=== PATIENT | male | born 1935 | race Caucasian/White ===

== ENCOUNTER 2020-01-21 09:49 | Day surgery (SDC) | payer OTHER ==
[2020-01-19 11:49] VITALS: BMI 23.0
--- OUTSIDE RECORDS SUMMARY | 2020-01-21 10:03 | XMS ---
:1935 Author Organization [facility] Care Team Providers Name Role Phone Lufrano, [place] Unavailable Unavailable Lufrano, [place] Unavailable Unavailable Lufrano, [place] Unavailable Unavailable Lufrano, [place] Unavailable Unavailable Lufrano, [place] Unavailable Unavailable Lufrano, [place] Unavailable Unavailable Lufrano, [place] Unavailable Unavailable Re-disclosure Warning The records that you are about to access may contain information from federally- assisted alcohol or drug abuse programs. If such information is present, then the following federally mandated warning applies: This information has been disclosed to you from records protected by federal confidentiality rules (42 CFR part 2). The federal rules prohibit you from making any further disclosure of this information unless further disclosure is expressly permitted by the written consent of the person to whom it pertains or as otherwise permitted by 42 CFR part 2. A general authorization for the release of medical or other information is NOT sufficient for this purpose. The Federal rules restrict any use of the information to criminally investigate or prosecute any alcohol or drug abuse patient.The records that you are about to access may contain highly sensitive health information, the redisclosure of which is protected by Article 27-F of the [facility] Public Health law. If you continue you may haveaccess to information: Regarding HIV / AIDS; Provided by facilities licensed or operated by the [facility] Office of Mental Health; or Provided by the [facility] Office for People With Developmental Disabilities. If such information is present, then the following [facility] mandated warning applies: This information has been disclosed to you from confidential records which are protected by state law. State law prohibits you from making any further disclosure of this information without the specific written consent of the person to whom it pertains, or as otherwise permitted by law. Any unauthorized further disclosure in violation of state law may result in a fine or longterm sentence or both. A general authorization for the release of medical or other information is NOT sufficient authorization for further disclosure. Encounters Encounter Providers Location Date Indications Data Source(s ) Attender: [place] 12/08/2019 [facility] ([facility] 12:00:00 AM EDT Medical, ) Office Attender: [place] Hernandes 12/08/2019 12:00:00 AM EDT [facility] ([facility], ) Office Attender: [place] Hernandes 12/08/2019 12:00:00 AM EDT [facility] ([facility], ) Office Medications Medication Brand Start Product Dose Route [facility] Indications Reaction Description Data Name Date Form Instructions Instructions Source(s) pantoprazol PROTON 90 complet PRO TONIX [facility] (St e 40 MG IX:284 2019 RELEASE ed Moe[facility] Delayed 400 12:00: TABLET Medical, Release 00 AM ) Oral Tablet EDT [Protonix] PROTONIX:28 4400 Insurance Providers Payer name Policy type Policy ID Covered Covered green party's Policy P jhonny / Coverage green party ID relationship to [place] Inf ormation type hendrickson AETNA [id number] MEDICARE [id number] Problems, Conditions, and Diagnoses Code Display Name Description Problem Type Effective Dates Data Source(s) D64.9 Anemia, ANEMIA, Problem 12/08/2019 [facility] (St unspecified UNSPECIFIED 12:00:00 AM EDAlber Al Kaleb ) K30 Functional FUNCTIONAL Problem 12/08/2019 [facility] (St dyspepsia DYSPEPSIA 12:00:00 AM EDAlber Verdugo Id lourdes ) R10.13 Epigastric pain EPIGASTRIC PAIN Problem 12/08/2019 [facility] EN (St 12:00:00 AM SAMANTHA Verdugo Id [facility] ) Surgeries/Procedures Procedure Description Date Indications Data Source(s) Documentation of current 12/08/2019 [facility] ([facility] medications (procedure) 12:00:00 AM EDAlber jacome ) OFFICE CONSULTATION 12/08/2019 [facility] ( [facility] NEW/ESTAB PATIENT 40 MIN 12:00:00 AM ED [facility]) Results ID Date Data Source [id number] 01/17/2020 12:40:00 PM EDT [facility] Name Value Range Interpretation Description Data Sup porting Code Source(s) Document(s ) SARS [facility] coronavirus 2 RNA This lab was ordered by DAVE ENG and reported by [facility]. ID Date Data Source [id number] 08/29/2019 09:35:00 AM EDT [facility] Name Value Range Interpretation Code Description Data Alix rce(s) Supporting Document(s ) COV2 [facility] This lab was ordered by BAILEY pathak nd reported by [facility]. Procedure Social History Code Duration Value Status Description Data Source(s ) Smoking 12/08/2019 Non Smoker Non completed Non Smoker Non [facility] ([facility] 12:00:00 AM EDT Drinker No Drug Drinker No Drug use [facility]) use Smoking 12/08/2019 Unknown if ever completed Unknown if ever [facility] ([facility] 12:00:00 AM EDT smoked smoked [facility]) Vital Signs ID Date Data Source UNK Name Value Range Interpretation Code Description Data Source(s) Heart rate 56 /min 56 /min [facility] ([facility]) Inhaled oxygen 96 % 96 % [facility] ([facility]) Body mass index 22.9 kg/m2 22.9 kg/m2 [facility] (S t (BMI) [Ratio] [facility]) Diastolic blood 62 mm[Hg] 62 mm[Hg] [facility] (S t pressure [facility]) Systolic blood 146 mm[Hg] 146 mm[Hg] [facility] ([facility]) Body weight 125 lb 125 lb [facility] ([facility]) Body height 62 in 62 in [facility] ([facility])
[2020-01-21 10:22] VITALS: TEMP 98.5
[2020-01-21] MEDS ORDERED: PROPOFOL 20 ML ONE ×2 (10:59)
[2020-01-21] MEDS ORDERED: LIDOCAINE HCL/PF 2% SDV 5ML VIAL ONE (10:59)
[2020-01-21 15:43] VITALS: BP 117/40; PULSE 53
--- NOTE | 2020-01-26 10:20 | PATH ---
Surgical Pathology Report Patient Name: BEATRIZ DURAN [facility]. Rec. #: [id number] /Age/Gender: 1935 (Age: 84) / M Account: [id number] Location: [facility] Taken: 01/21/2020 Received: 01/21/2020 Reported: 01/26/2020 Physicians: [place] Hernandes M.D. Specimen(s) Received A: SECOND PORTION DUODENUM B: ANTRUM C: GE JUNCTION Clinical History Dyspepsia Postoperative diagnosis: Gastritis, erosion Final Diagnosis A. 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 B. GASTRIC ANTRUM, BIOPSY: Gastric ANTRAL mucosa with moderate chronic gastritis. Immunohistochemical STAIN FOR H. Pylori is negative. C. GE JUNCTION, BIOPSY: SQUAMOUS MUCOSA WITH CHANGES OF MILD REFLUX TYPE ESOPHAGITIS. Positive and negative controls (internal if applicable) show appropriate results. Electronically Signed [place] Cheung M.D. Gross Description A. Received in formalin, labeled "second portion duodenum" is a allen, irregular portion of soft tissue measuring 0.3 cm. in greatest dimension. The specimen is submitted in toto in one cassette. B. Received in formalin, labeled "gastric antrum" is a allen, irregular portion of soft tissue measuring 0.4 cm. in greatest dimension. The specimen is submitted in toto in one cassette. C. Received in formalin, labeled "GE junction" is a allen, irregular portion of soft tissue measuring 0.3 cm. in greatest dimension. The specimen is submitted in toto in one cassette. MLSZ/01/22/2020 sanml/01/22/2020
== END 2020-01-21 12:30 | disposition home or self-care (01) ==
LOC: FASU-ENDO 09:49
PROVIDERS: ATTEND Internal Medicine Gastroenterology
PROC: 0DB68ZX Excision of Stomach, Via Natural or Artificial Opening Endoscopic, Diagnostic (ICD-10-PCS; 2020-01-21)
PROC: 0DB48ZX Excision of Esophagogastric Junction, Via Natural or Artificial Opening Endoscopic, Diagnostic (ICD-10-PCS; 2020-01-21)
PROC: 0DB98ZX Excision of Duodenum, Via Natural or Artificial Opening Endoscopic, Diagnostic (ICD-10-PCS; principal; 2020-01-21 11:19)
DX: D50.9 Iron deficiency anemia, unspecified (principal); K29.80 Duodenitis without bleeding; K29.50 Unspecified chronic gastritis without bleeding; K21.0 Gastro-esophageal reflux disease with esophagitis
CPT/HCPCS: 88305-TC; 88342-TC

== ENCOUNTER 2020-04-11 13:09 | Inpatient (IN) | payer OTHER ==
[2020-04-11 15:20] LABS: ACTIVATED PTT 26.3 SECONDS (25.2-36.5)
[2020-04-11 15:24] LABS: INR 1.13 (0.82-1.09); PROTHROMBIN TIME (PATIENT) 12.5 SEC (10.2-13.0)
[2020-04-11 15:27] LABS: ALBUMIN 3.8 g/dl (3.4-5.0); BILIRUBIN,TOTAL 0.7 mg/dl (0.2-1); CALCIUM 8.9 mg/dl (8.5-10); CREATININE 2.8 mg/dl (0.55-1.3); TOT PROT 7.4 g/dl (6.4-8.2)
[2020-04-11 15:27] LABS: EPITHELIAL CELLS RARE /hpf
[2020-04-11 15:33] LABS: POTASSIUM 2.6 mmol/L (3.5-5.1)
[2020-04-11] MEDS ORDERED: POTASSIUM CHLORIDE ORAL LIQUID 20 MEQ/15 ML PO ONE (15:33)
[2020-04-11] MEDS ORDERED: LACTATED RINGERS SOLUTION 1000 ML INFUS.BAG IV ONE (15:38)
[2020-04-11 15:52] LABS: BASO % 0.3 % (0-2.0); EOS % 0.5 % (0-4.5); HEMATOCRIT 31.3 % (35.4-49); HEMOGLOBIN 10.6 GM/dL (11.7-16.9); LYMPH % 28.7 % (8-40); MCH 32.7 pg (25.7-33.7); MCHC 33.8 g/dl (32.0-35.9); MEAN CELL VOLUME 96.6 fl (80-96); MEAN PLT VOLUME 9.4 fl (7.5-11.1); MONO % 10.1 % (3.8-10.2); NEUT % 60.4 % (42.8-82.8); PLATELET COUNT 172 K/MM3 (134-434); RBC 3.24 M/mm3 (4.00-5.60); RDW 13.9 % (11.9-15.9); WHITE BLOOD COUNT 6.2 K/mm3 (4.0-10.0)
[2020-04-11] MEDS ORDERED: KCL 10 MEQ IVPB 10 MEQ/100 ML INFUS.BAG IVPB ONE (16:05)
[2020-04-11] MEDS ORDERED: POTASSIUM CHLORIDE ORAL LIQUID 20 MEQ/15 ML ONE (16:06)
[2020-04-11] MEDS: KCL 10 MEQ IVPB 10 MEQ/100 ML INFUS.BAG IVPB SCH ×3 (16:06→22:45)
[2020-04-11] MEDS ORDERED: MAGNESIUM SULF 50% (8.12 MEQ/2 ML-1 GM VIAL) IVPB ONE (16:48)
[2020-04-11] MEDS ORDERED: SODIUM CHLORIDE 500 ML IV STA (16:49)
[2020-04-11] MEDS ORDERED: MAGNESIUM 1GM/D5W - 1 GM/100 ML IVPB IVPB ONE ×2 (17:36→18:18)
[2020-04-11 20:51] VITALS: BMI 20.3
[2020-04-12] MEDS ORDERED: LACTATED RINGERS SOLUTION 1,000 ML/1,000 ML INFUS.BAG IV SCH ×2 (02:30→20:45)
[2020-04-12] MEDS ORDERED: ACETAMINOPHEN 325 MG TABLET (FP) ONE (04:14)
[2020-04-12 04:18] LABS: BLOOD UREA NITROGEN 81.5 mg/dL (7-18); CALCIUM 8.5 mg/dL (8.5-10.1)
[2020-04-12 04:22] LABS: CREATININE 2.5 mg/dL (0.55-1.3)
[2020-04-12 04:28] LABS: POTASSIUM 2.9 mmol/L (3.5-5.1)
[2020-04-12] MEDS ORDERED: POTASSIUM CHLORIDE ORAL LIQUID 20 MEQ/15 ML PO ONE (04:42)
[2020-04-12] MEDS ORDERED: LACTATED RINGERS SOLUTION 1,000 ML with POTASSIUM CHLORIDE 40 MEQ IV ONE (04:45)
[2020-04-12 05:25] LABS: MAGNESIUM 2.2 mg/dL (1.8-2.4)
[2020-04-12 05:29] LABS: PHOSPHOROUS 2.8 mg/dL (2.5-4.9)
[2020-04-12] MEDS: PANTOPRAZOLE 40 MG TABLET PO SCH (06:53)
[2020-04-12] MEDS: HEPARIN NA (PORCINE) 5,000 UNITS/ML 1ML VIAL SQ SCH ×3 (06:53→21:32)
[2020-04-12] MEDS ORDERED: D5-NS + 40 MEQ KCL - 40 MEQ/1,000 ML INFUS.BAG IV SCH ×2 (07:00→10:00)
[2020-04-12 08:23] LABS: ALBUMIN 3.2 g/dl (3.4-5.0); BILIRUBIN,TOTAL 0.7 mg/dl (0.2-1); CALCIUM 8.6 mg/dl (8.5-10); CREATININE 2.4 mg/dl (0.55-1.3); MAGNESIUM 2.1 mg/dL (1.8-2.4); PHOSPHOROUS 3.2 mg/dl (2.5-4.9); POTASSIUM 3.8 mmol/L (3.5-5.1); TOT PROT 6.5 g/dl (6.4-8.2)
[2020-04-12] MEDS: FERROUS SO4 325 MG TABLET (FP) PO SCH (09:02)
[2020-04-12] MEDS: ASCORBIC ACID 500 MG TABLET (FP) PO SCH ×2 (09:02→21:32)
[2020-04-12 09:18] LABS: BASO % 0.3 % (0-2.0); EOS % 1.1 % (0-4.5); HEMATOCRIT 30.6 % (35.4-49); HEMOGLOBIN 10.1 GM/dL (11.7-16.9); LYMPH % 32.1 % (8-40); MCH 31.9 pg (25.7-33.7); MEAN CELL VOLUME 96.6 fl (80-96); MEAN PLT VOLUME 9.1 fl (7.5-11.1); MONO % 9.4 % (3.8-10.2); NEUT % 57.1 % (42.8-82.8); PLATELET COUNT 164 K/MM3 (134-434); RBC 3.17 M/mm3 (4.00-5.60); RDW 14.4 % (11.9-15.9); WHITE BLOOD COUNT 5.6 K/mm3 (4.0-10.0)
[2020-04-12] MEDS ORDERED: PATIENT'S OWN MEDICATION (NON-FORMULARY) (Ascorbic Acid [Vitamin C] 500 MG Capsule) PO SCH (10:00)
[2020-04-12] MEDS ORDERED: PATIENT'S OWN MEDICATION (NON-FORMULARY) (Ferrous Sulfate [Feosol] 325 MG Tablet) PO SCH (10:00)
[2020-04-12] MEDS: POLYETHYLENE GLYCOL 3350 119 GM BTL PO SCH (10:08)
[2020-04-12] MEDS: POTASSIUM CHLORIDE TABS 20 MEQ TABLET.ER (FP) PO ONE ×2 (10:08→10:47)
[2020-04-12] MEDS: DOCUSATE SODIUM 100 MG CAPSULE (FP) PO SCH ×2 (14:10→21:31)
[2020-04-12] MEDS ORDERED: ATORVASTATIN CA 10 MG TABLET (FP) PO SCH (22:00)
[2020-04-12] MEDS ORDERED: ASPIRIN COATED 81 MG TABLET.EC PO SCH (22:00)
[2020-04-13 01:43] VITALS: PULSE 62
[2020-04-13] MEDS: HEPARIN NA (PORCINE) 5,000 UNITS/ML 1ML VIAL SQ SCH (06:24)
[2020-04-13] MEDS: PANTOPRAZOLE 40 MG TABLET PO SCH (06:24)
[2020-04-13] MEDS: DOCUSATE SODIUM 100 MG CAPSULE (FP) PO SCH (06:24)
[2020-04-13 06:49] VITALS: BP 140/54; TEMP 98
[2020-04-13 08:24] LABS: ALBUMIN 3.5 g/dl (3.4-5.0); BILIRUBIN,TOTAL 0.7 mg/dl (0.2-1); CALCIUM 8.9 mg/dl (8.5-10); CREATININE 2.2 mg/dl (0.55-1.3); MAGNESIUM 1.9 mg/dL (1.8-2.4); POTASSIUM 3.6 mmol/L (3.5-5.1); TOT PROT 6.8 g/dl (6.4-8.2)
[2020-04-13] MEDS ORDERED: POTASSIUM CHLORIDE TABS 20 MEQ TABLET.ER (FP) PO ONE (08:45)
[2020-04-13] MEDS: ASCORBIC ACID 500 MG TABLET (FP) PO SCH (09:44)
[2020-04-13] MEDS: FERROUS SO4 325 MG TABLET (FP) PO SCH (09:44)
[2020-04-13] MEDS: POLYETHYLENE GLYCOL 3350 119 GM BTL PO SCH (10:00)
== END 2020-04-13 13:33 | disposition home or self-care (01) | DRG 684 ==
LOC: FER 13:09 → FM/S 18:56
PROVIDERS: ADMIT Internal Medicine; ATTEND Nurse Practitioner Acute Care
DX: N17.9 Acute kidney failure, unspecified (principal); E83.42 Hypomagnesemia; E87.6 Hypokalemia; I10 Essential (primary) hypertension; I25.10 Atherosclerotic heart disease of native coronary artery without angina pectoris; E78.5 Hyperlipidemia, unspecified; D64.9 Anemia, unspecified; Z95.5 Presence of coronary angioplasty implant and graft; R00.2 Palpitations; R07.89 Other chest pain; E86.0 Dehydration
CPT/HCPCS: 36415; 71045-TC-FY; 74176-TC; 80048; 80053; 81003; 81015; 82436; 82550; 82565; 83605; 83735; 84100; 84133; 84300; 84443; 84484; 85025; 85610; 85730; 86850; 86870; 86900; 86901; 86902; 87086; 93005; 93306-TC; 99285-25; C9803; J1644; U0003

== ENCOUNTER 2020-06-22 09:35 | Observation (INO) | payer OTHER ==
[2020-06-22 10:06] LABS: BASO % 3.6 % (0-2.0); EOS % 0.9 % (0-4.5); HEMATOCRIT 28.8 % (35.4-49); HEMOGLOBIN 9.7 GM/dl (11.7-16.9); LYMPH % 27.2 % (8-40); MCHC 33.5 g/dl (32.0-35.9); MEAN CELL VOLUME 98.3 fl (80-96); MEAN PLT VOLUME 8.2 fl (7.5-11.1); MONO % 8.8 % (3.8-10.2); NEUT % 59.5 % (42.8-82.8); PLATELET COUNT 140 K/MM3 (134-434); RBC 2.93 M/mm3 (4.00-5.60); RDW 14.7 % (11.9-15.9); WHITE BLOOD COUNT 5.4 K/mm3 (4.0-10.8)
[2020-06-22 10:18] LABS: ALBUMIN 4.2 g/dl (3.4-5.0); ALK PHOS 84 U/L (45-117); ANION GAP 8 MMOL/L (8-16); BILIRUBIN,TOTAL 0.9 mg/dl (0.2-1); CHLORIDE 103 mmol/L (98-107); CO2 29 mmol/L (21-32); CREATININE 1.8 mg/dl (0.55-1.3); GLUCOSE,RANDOM 103 mg/dl (74-106); LDH 124 U/L (84-246); POTASSIUM 4.6 mmol/L (3.5-5.1); SGOT/AST 15 U/L (15-37); SGPT/ALT 12 U/L (13-61); SODIUM 140 mmol/L (136-145); TOT PROT 7.1 g/dl (6.4-8.2)
[2020-06-22 11:43] LABS: N-TERMINAL BNP 2469.3 pg/ml (5-450)
[2020-06-22] MEDS ORDERED: amLODIPine BESYLATE 5 MG TABLET (FP) ONE (13:45)
[2020-06-22] MEDS: amLODIPine BESYLATE 5 MG TABLET (FP) PO SCH (13:45)
[2020-06-22 15:30] VITALS: BMI 20.6
[2020-06-22] MEDS: HEPARIN NA (PORCINE) 5,000 UNITS/ML 1ML VIAL SQ SCH (17:22)
[2020-06-22] MEDS: LABETALOL HCL 100 MG TABLET (FP) PO SCH (21:16)
[2020-06-22] MEDS ORDERED: ASPIRIN COATED 81 MG TABLET.EC PO SCH (22:00)
[2020-06-22] MEDS ORDERED: ATORVASTATIN CA 10 MG TABLET (FP) PO SCH (22:00)
[2020-06-23] MEDS: HEPARIN NA (PORCINE) 5,000 UNITS/ML 1ML VIAL SQ SCH ×3 (02:00→18:43)
[2020-06-23 08:59] LABS: ALBUMIN 3.9 g/dl (3.4-5.0); BILIRUBIN,TOTAL 0.5 mg/dl (0.2-1); CALCIUM 8.9 mg/dl (8.5-10); CREATININE 1.8 mg/dl (0.55-1.3); MAGNESIUM 1.8 mg/dL (1.8-2.4); POTASSIUM 3.9 mmol/L (3.5-5.1); TOT PROT 6.8 g/dl (6.4-8.2)
[2020-06-23 09:09] LABS: BASO % 0.4 % (0-2.0); EOS % 1.1 % (0-4.5); HEMATOCRIT 29.3 % (35.4-49); HEMOGLOBIN 9.9 GM/dL (11.7-16.9); LYMPH % 33.1 % (8-40); MCH 33.3 pg (25.7-33.7); MCHC 33.8 g/dl (32.0-35.9); MEAN CELL VOLUME 98.5 fl (80-96); NEUT % 57.4 % (42.8-82.8); PLATELET COUNT 152 K/MM3 (134-434); RBC 2.98 M/mm3 (4.00-5.60); RDW 15.5 % (11.9-15.9)
[2020-06-23] MEDS: amLODIPine BESYLATE 5 MG TABLET (FP) PO SCH (09:29)
[2020-06-23] MEDS: LABETALOL HCL 100 MG TABLET (FP) PO SCH (09:29)
[2020-06-23] MEDS ORDERED: FUROSEMIDE 40 MG TABLET (FP) PO SCH (10:00)
[2020-06-23] MEDS ORDERED: FERROUS SO4 325 MG TABLET (FP) PO SCH (10:00)
[2020-06-23] MEDS ORDERED: PANTOPRAZOLE 40 MG TABLET PO SCH (10:00)
[2020-06-23 13:52] VITALS: BP 114/41; PULSE 55; TEMP 98.4
== END 2020-06-23 19:30 | disposition home or self-care (01) ==
LOC: SUPCPDRO 09:35 → FER 09:35 → FM/S 12:59
PROVIDERS: ADMIT Internal Medicine; ATTEND Nurse Practitioner Acute Care
PROC: 3E0234Z Introduction of Serum, Toxoid and Vaccine into Muscle, Percutaneous Approach (ICD-10-PCS; principal; 2020-06-22)
DX: I35.0 Nonrheumatic aortic (valve) stenosis (principal); I50.33 Acute on chronic diastolic (congestive) heart failure; I13.10 Hypertensive heart and chronic kidney disease without heart failure, with stage 1 through stage 4 chronic kidney disease, or unspecified chronic kidney disease; I25.2 Old myocardial infarction; I25.10 Atherosclerotic heart disease of native coronary artery without angina pectoris; R07.2 Precordial pain; Z95.5 Presence of coronary angioplasty implant and graft; I25.118 Atherosclerotic heart disease of native coronary artery with other forms of angina pectoris; E78.00 Pure hypercholesterolemia, unspecified; N18.9 Chronic kidney disease, unspecified; E78.5 Hyperlipidemia, unspecified; D64.9 Anemia, unspecified; K57.92 Diverticulitis of intestine, part unspecified, without perforation or abscess without bleeding; I70.1 Atherosclerosis of renal artery; R01.1 Cardiac murmur, unspecified; R06.01 Orthopnea; R06.09 Other forms of dyspnea; Z23 Encounter for immunization; Z79.82 Long term (current) use of aspirin
CPT/HCPCS: 36415; 71045-TC-FY; 80053; 81003; 82550; 82728; 83615; 83735; 83880; 84484; 85025; 85730; 86140; 87086; 93005; 93306-TC; 93971-TC; 97116-GP; 97162-GP; 99285-25; C9803; G0378; J1644; U0003

== ENCOUNTER 2020-06-26 13:06 | Emergency (ER) | payer OTHER ==
[2020-06-26 13:33] VITALS: TEMP 98; BMI 20.6
[2020-06-26 14:04] LABS: EOS % 1.1 % (0-4.5); WHITE BLOOD COUNT 6.5 K/mm3 (4.0-10.8)
[2020-06-26 14:06] LABS: BASO % 2.4 % (0-2.0); HEMATOCRIT 30.9 % (35.4-49); HEMOGLOBIN 10.4 GM/dl (11.7-16.9); LYMPH % 27.4 % (8-40); MCH 32.9 pg (25.7-33.7); MCHC 33.6 g/dl (32.0-35.9); MEAN CELL VOLUME 97.9 fl (80-96); MEAN PLT VOLUME 7.9 fl (7.5-11.1); NEUT % 63.1 % (42.8-82.8); PLATELET COUNT 165 K/MM3 (134-434); RBC 3.15 M/mm3 (4.00-5.60); RDW 14.6 % (11.9-15.9)
[2020-06-26 14:12] LABS: ALBUMIN 4.2 g/dl (3.4-5.0); BILIRUBIN,TOTAL 0.6 mg/dl (0.2-1); CALCIUM 9.2 mg/dl (8.5-10); CREATININE 1.8 mg/dl (0.55-1.3); POTASSIUM 4.9 mmol/L (3.5-5.1); TOT PROT 7.2 g/dl (6.4-8.2)
[2020-06-26 17:22] VITALS: BP 133/52; PULSE 69
== END 2020-06-26 17:47 | disposition home or self-care (01) ==
LOC: FER 13:06
DX: R07.9 Chest pain, unspecified (principal); I35.0 Nonrheumatic aortic (valve) stenosis
CPT/HCPCS: 36415; 71046-TC-FY; 80053; 82550; 84484; 85025; 93005; 99285-25

== ENCOUNTER 2021-07-16 10:05 | Observation (INO) | payer OTHER ==
[2021-07-16] MEDS ORDERED: METOCLOPRAMIDE HCL INJECTION 10 MG/2 ML VIAL IVPB ONE (10:45)
[2021-07-16] MEDS ORDERED: SODIUM CHLORIDE 0.9% 500 ML INFUS.BAG IV ONE (10:45)
[2021-07-16] MEDS ORDERED: METOCLOPRAMIDE HCL INJECTION 10 MG/2 ML VIAL ONE (10:50)
[2021-07-16 10:55] LABS: INR 1.05 (0.83-1.09); PROTHROMBIN TIME (PATIENT) 12.1 SEC (9.7-13.0)
[2021-07-16 10:58] LABS: ACTIVATED PTT 30.7 SECONDS (25.2-36.5)
[2021-07-16 11:01] LABS: ALBUMIN 3.6 g/dl (3.4-5.0); BILIRUBIN,TOTAL 0.8 mg/dl (0.2-1); CALCIUM 8.6 mg/dl (8.5-10); CREATININE 1.5 mg/dl (0.55-1.3); MAGNESIUM 1.8 mg/dL (1.8-2.4)
[2021-07-16 11:15] LABS: EPITHELIAL CELLS FEW /hpf
[2021-07-16] MEDS ORDERED: ASPIRIN 81 MG CHEWABLE TABLETS PO ONE (11:24)
[2021-07-16] MEDS ORDERED: ASPIRIN 81 MG CHEWABLE TABLETS ONE (11:30)
[2021-07-16 12:14] LABS: BASO % 0.4 % (0-2.0); EOS % 1.1 % (0-4.5); HEMATOCRIT 28.5 % (35.4-49); HEMOGLOBIN 9.5 GM/dL (11.7-16.9); LYMPH % 36.2 % (8-40); MCHC 33.4 g/dl (32.0-35.9); MEAN CELL VOLUME 92.8 fl (80-96); MEAN PLT VOLUME 8.4 fl (7.5-11.1); MONO % 8.3 % (3.8-10.2); PLATELET COUNT 138 10^3/uL (134-434); RBC 3.07 M/mm3 (4.00-5.60); RDW 16.2 % (11.9-15.9)
[2021-07-16] MEDS ORDERED: TAMSULOSIN HCL 0.4 MG CAP ONE (12:41)
[2021-07-16] MEDS ORDERED: amLODIPine BESYLATE 5 MG TABLET (FP) ONE (12:41)
[2021-07-16] MEDS: amLODIPine BESYLATE 5 MG TABLET (FP) PO SCH (12:50)
[2021-07-16] MEDS: TAMSULOSIN HCL 0.4 MG CAP PO SCH (12:50)
[2021-07-16] MEDS: ATORVASTATIN CA 10 MG TABLET (FP) PO SCH (12:50)
[2021-07-16] MEDS: RANOLAZINE E.R. 500 MG TABLET (FP) PO SCH ×2 (12:50→22:02)
[2021-07-16 14:36] VITALS: BMI 21.3
[2021-07-16] MEDS: HEPARIN NA (PORCINE) 5,000 UNITS/ML 1ML VIAL SQ SCH (17:28)
[2021-07-17] MEDS: HEPARIN NA (PORCINE) 5,000 UNITS/ML 1ML VIAL SQ SCH ×2 (01:58→10:31)
[2021-07-17 09:36] LABS: ALBUMIN 3.4 g/dl (3.4-5.0); BILIRUBIN,TOTAL 0.7 mg/dl (0.2-1); CALCIUM 8.5 mg/dl (8.5-10); CREATININE 1.5 mg/dl (0.55-1.3); MAGNESIUM 1.8 mg/dL (1.8-2.4); TOT PROT 6.4 g/dl (6.4-8.2)
[2021-07-17 10:08] LABS: BASO % 0.4 % (0-2.0); EOS % 1.2 % (0-4.5); HEMATOCRIT 27.9 % (35.4-49); HEMOGLOBIN 9.3 GM/dL (11.7-16.9); LYMPH % 31.9 % (8-40); MCHC 33.4 g/dl (32.0-35.9); MEAN PLT VOLUME 8.8 fl (7.5-11.1); MONO % 9.6 % (3.8-10.2); NEUT % 56.9 % (42.8-82.8); PLATELET COUNT 136 10^3/uL (134-434); RDW 16.5 % (11.9-15.9); WHITE BLOOD COUNT 5.5 K/mm3 (4.0-10.0)
[2021-07-17] MEDS: TAMSULOSIN HCL 0.4 MG CAP PO SCH (10:31)
[2021-07-17] MEDS: ATORVASTATIN CA 10 MG TABLET (FP) PO SCH (10:31)
[2021-07-17] MEDS: ASPIRIN COATED 81 MG TABLET.EC PO SCH (10:31)
[2021-07-17] MEDS: FERROUS SO4 325 MG TABLET (FP) PO SCH (10:31)
[2021-07-17] MEDS: RANOLAZINE E.R. 500 MG TABLET (FP) PO SCH ×2 (10:31→21:46)
[2021-07-17] MEDS: amLODIPine BESYLATE 5 MG TABLET (FP) PO SCH (10:31)
[2021-07-17] MEDS: PANTOPRAZOLE 40 MG TABLET PO SCH (10:31)
[2021-07-17 11:33] LABS: CHOLESTEROL 74 mg/dl (50-200); HDL CHOLESTEROL 33 mg/dl (40-60); LDL CHOLESTEROL (ONLY DFH) 31 mg/dl (5-100); TRIGLYCERIDES 50 mg/dl (0-150)
[2021-07-17] MEDS ORDERED: SODIUM PHOSPHATE/NA BIPHOS 133 ML ENEMA PR ONE (11:38)
[2021-07-17] MEDS ORDERED: BISACODYL 5 MG TABLET.DR (FP) PO ONE (11:39)
[2021-07-17] MEDS ORDERED: NITROGLYCERIN SUBLINGUAL 1/150 0.4 MG TAB SL PRN (14:12)
[2021-07-17] MEDS: ACETAMINOPHEN 325 MG TABLET (FP) PO PRN (14:52)
[2021-07-17] MEDS: METOPROLOL TARTRATE 25 MG TABLET (FP) PO SCH (21:46)
[2021-07-18] MEDS: HEPARIN NA (PORCINE) 5,000 UNITS/ML 1ML VIAL SQ SCH ×4 (02:00→18:14)
[2021-07-18] MEDS: ASPIRIN COATED 81 MG TABLET.EC PO SCH (09:23)
[2021-07-18] MEDS: amLODIPine BESYLATE 5 MG TABLET (FP) PO SCH (09:23)
[2021-07-18] MEDS: TAMSULOSIN HCL 0.4 MG CAP PO SCH (09:23)
[2021-07-18] MEDS: METOPROLOL TARTRATE 25 MG TABLET (FP) PO SCH ×2 (09:24→21:59)
[2021-07-18] MEDS: PANTOPRAZOLE 40 MG TABLET PO SCH (09:24)
[2021-07-18] MEDS: RANOLAZINE E.R. 500 MG TABLET (FP) PO SCH ×2 (09:24→21:59)
[2021-07-18] MEDS: ATORVASTATIN CA 10 MG TABLET (FP) PO SCH (09:24)
[2021-07-18] MEDS: FERROUS SO4 325 MG TABLET (FP) PO SCH (09:24)
[2021-07-18] MEDS ORDERED: LEVOTHYROXINE NA 50 MCG TABLET (FP) PO ONE (10:06)
[2021-07-18] MEDS: ROSUVASTATIN CA 20 MG TABLET PO SCH (21:59)
[2021-07-19] MEDS: HEPARIN NA (PORCINE) 5,000 UNITS/ML 1ML VIAL SQ SCH ×2 (02:00→09:30)
[2021-07-19] MEDS: LEVOTHYROXINE NA 50 MCG TABLET (FP) PO SCH (06:00)
[2021-07-19 07:59] LABS: ALBUMIN 3.4 g/dl (3.4-5.0); BILIRUBIN,TOTAL 0.5 mg/dl (0.2-1); CALCIUM 8.5 mg/dl (8.5-10); CREATININE 1.8 mg/dl (0.55-1.3); MAGNESIUM 1.8 mg/dL (1.8-2.4); TOT PROT 6.7 g/dl (6.4-8.2)
[2021-07-19] MEDS: amLODIPine BESYLATE 5 MG TABLET (FP) PO SCH (09:30)
[2021-07-19] MEDS: FERROUS SO4 325 MG TABLET (FP) PO SCH (09:31)
[2021-07-19] MEDS: ASPIRIN COATED 81 MG TABLET.EC PO SCH (09:31)
[2021-07-19] MEDS: METOPROLOL TARTRATE 25 MG TABLET (FP) PO SCH ×2 (09:31→22:46)
[2021-07-19] MEDS: PANTOPRAZOLE 40 MG TABLET PO SCH (09:31)
[2021-07-19] MEDS: TAMSULOSIN HCL 0.4 MG CAP PO SCH (09:31)
[2021-07-19] MEDS: RANOLAZINE E.R. 500 MG TABLET (FP) PO SCH ×2 (09:32→22:50)
[2021-07-19 10:23] LABS: BASO % 0.3 % (0-2.0); EOS % 2.1 % (0-4.5); HEMATOCRIT 27.8 % (35.4-49); HEMOGLOBIN 9.4 GM/dL (11.7-16.9); LYMPH % 28.9 % (8-40); MCH 31.5 pg (25.7-33.7); MCHC 33.8 g/dl (32.0-35.9); MEAN PLT VOLUME 8.9 fl (7.5-11.1); MONO % 8.9 % (3.8-10.2); NEUT % 59.8 % (42.8-82.8); PLATELET COUNT 139 10^3/uL (134-434); RBC 2.99 M/mm3 (4.00-5.60); RDW 16.3 % (11.9-15.9); WHITE BLOOD COUNT 6.5 K/mm3 (4.0-10.0)
[2021-07-19] MEDS: ROSUVASTATIN CA 20 MG TABLET PO SCH (22:50)
[2021-07-19] MEDS: ACETAMINOPHEN 325 MG TABLET (FP) PO PRN (22:53)
[2021-07-20] MEDS: LEVOTHYROXINE NA 50 MCG TABLET (FP) PO SCH (07:42)
[2021-07-20 08:02] LABS: CREATININE 1.9 mg/dl (0.55-1.3)
[2021-07-20] MEDS: ASPIRIN COATED 81 MG TABLET.EC PO SCH (09:03)
[2021-07-20] MEDS: RANOLAZINE E.R. 500 MG TABLET (FP) PO SCH (09:03)
[2021-07-20] MEDS: FERROUS SO4 325 MG TABLET (FP) PO SCH (09:03)
[2021-07-20] MEDS: METOPROLOL TARTRATE 25 MG TABLET (FP) PO SCH (09:03)
[2021-07-20] MEDS: TAMSULOSIN HCL 0.4 MG CAP PO SCH (09:04)
[2021-07-20] MEDS: PANTOPRAZOLE 40 MG TABLET PO SCH (09:04)
[2021-07-20] MEDS: amLODIPine BESYLATE 5 MG TABLET (FP) PO SCH (09:04)
[2021-07-20 09:07] VITALS: PULSE 84; TEMP 98.4
[2021-07-20 09:37] VITALS: BP 133/52
[2021-07-20 09:40] LABS: BASO % 0.2 % (0-2.0); EOS % 0.2 % (0-4.5); HEMATOCRIT 30.9 % (35.4-49); HEMOGLOBIN 10.3 GM/dL (11.7-16.9); LYMPH % 18.6 % (8-40); MCH 31.2 pg (25.7-33.7); MCHC 33.4 g/dl (32.0-35.9); MEAN CELL VOLUME 93.3 fl (80-96); MEAN PLT VOLUME 8.4 fl (7.5-11.1); MONO % 6.4 % (3.8-10.2); NEUT % 74.6 % (42.8-82.8); PLATELET COUNT 152 10^3/uL (134-434); RBC 3.31 M/mm3 (4.00-5.60); RDW 16.7 % (11.9-15.9); WHITE BLOOD COUNT 5.8 K/mm3 (4.0-10.0)
== END 2021-07-20 13:11 | disposition home or self-care (01) ==
LOC: FER 10:05 → INTOOBSV 11:17 → FM/S 11:17
PROVIDERS: ADMIT Internal Medicine; ATTEND Nurse Practitioner Acute Care
PROC: 3E023GC Introduction of Other Therapeutic Substance into Muscle, Percutaneous Approach (ICD-10-PCS; principal; 2021-07-16)
PROC: 3E033GC Introduction of Other Therapeutic Substance into Peripheral Vein, Percutaneous Approach (ICD-10-PCS; 2021-07-16)
PROC: 3E0337Z Introduction of Electrolytic and Water Balance Substance into Peripheral Vein, Percutaneous Approach (ICD-10-PCS; 2021-07-16)
DX: I25.119 Atherosclerotic heart disease of native coronary artery with unspecified angina pectoris (principal); I12.9 Hypertensive chronic kidney disease with stage 1 through stage 4 chronic kidney disease, or unspecified chronic kidney disease; R01.1 Cardiac murmur, unspecified; I25.10 Atherosclerotic heart disease of native coronary artery without angina pectoris; E78.5 Hyperlipidemia, unspecified; Z95.1 Presence of aortocoronary bypass graft; I35.0 Nonrheumatic aortic (valve) stenosis; E11.22 Type 2 diabetes mellitus with diabetic chronic kidney disease; N18.9 Chronic kidney disease, unspecified; D64.9 Anemia, unspecified; K57.90 Diverticulosis of intestine, part unspecified, without perforation or abscess without bleeding; R10.30 Lower abdominal pain, unspecified; R30.0 Dysuria; M79.661 Pain in right lower leg; I70.1 Atherosclerosis of renal artery; Z29.9 Encounter for prophylactic measures, unspecified; Z95.5 Presence of coronary angioplasty implant and graft; I25.118 Atherosclerotic heart disease of native coronary artery with other forms of angina pectoris; R77.8 Other specified abnormalities of plasma proteins; R07.9 Chest pain, unspecified; I24.8 Other forms of acute ischemic heart disease; E78.00 Pure hypercholesterolemia, unspecified; R06.02 Shortness of breath
CPT/HCPCS: 36415; 70450-TC; 71045-TC-FY; 71250-TC; 74150-TC; 76775-TC; 76857; 80048; 80053; 80061; 81003; 81015; 82607; 82746; 83540; 83550; 83605; 83735; 83880; 84439; 84443; 84484; 85025; 85610; 85730; 87086; 93005; 93010; 93306-TC; 93971-TC; 96372; 96374; 97116-GP; 97162-GP; 99285-25; C9803; G0378; J1644; U0003; U0005

== ENCOUNTER 2021-08-04 19:45 | Inpatient (IN) | payer OTHER ==
[2021-08-04 20:00] VITALS: BMI 21.4
[2021-08-04] MEDS ORDERED: ACETAMINOPHEN 1000 MG/100 ML BAG IVPB ONE (20:11)
[2021-08-04] MEDS ORDERED: SODIUM CHLORIDE 1,000 ML IV SCH (20:15)
[2021-08-04] MEDS ORDERED: ALBUTEROL SO4 0.083% IH SOL 2.5 MG/3 ML VIAL.NEB. NEB ONE (20:40)
[2021-08-04] MEDS ORDERED: ACETAMINOPHEN INJECTION 100 ML IVPB ONE (20:43)
[2021-08-04 21:05] LABS: ALBUMIN 3.8 g/dl (3.4-5.0); BILIRUBIN,TOTAL 0.7 mg/dl (0.2-1); CALCIUM 8.2 mg/dl (8.5-10); CREATININE 1.7 mg/dl (0.55-1.3); TOT PROT 7.4 g/dl (6.4-8.2)
[2021-08-04 21:07] LABS: BASO % 0.4 % (0-2.0); EOS % 0.2 % (0-4.5); HEMATOCRIT 29.9 % (35.4-49); HEMOGLOBIN 9.8 GM/dL (11.7-16.9); LYMPH % 21.3 % (8-40); MCH 30.6 pg (25.7-33.7); MCHC 32.8 g/dl (32.0-35.9); MEAN CELL VOLUME 93.2 fl (80-96); MEAN PLT VOLUME 8.1 fl (7.5-11.1); NEUT % 64.1 % (42.8-82.8); PLATELET COUNT 132 10^3/uL (134-434); RDW 16.9 % (11.9-15.9)
[2021-08-04] MEDS ORDERED: ASPIRIN 81 MG CHEWABLE TABLETS PO ONE (21:36)
[2021-08-04] MEDS ORDERED: ASPIRIN 81 MG CHEWABLE TABLETS ONE (21:41)
[2021-08-04] MEDS ORDERED: CEFTRIAXONE 1,000 MG in DEXTROSE 5%-WATER - 50 ML IVPB ONE (22:29)
[2021-08-04] MEDS ORDERED: cefTRIAXone SODIUM 1 GM VIAL ONE (22:31)
[2021-08-04] MEDS ORDERED: AZITHROMYCIN IVPB 500 MG in DEXTROSE 5%-WATER - 250 ML IVPB ONE (22:33)
[2021-08-04] MEDS ORDERED: AZITHROMYCIN 500 MG VIAL IVPB ONE (22:36)
[2021-08-05] MEDS ORDERED: ACETAMINOPHEN 325 MG TABLET (FP) PO PRN (01:36)
[2021-08-05] MEDS: LEVOTHYROXINE NA 50 MCG TABLET (FP) PO SCH (06:52)
[2021-08-05] MEDS ORDERED: VANCOMYCIN/WATER FOR INJ (PEG) 1,000 MG/200 ML BAG IVPB SCH (08:00)
[2021-08-05] MEDS ORDERED: VANCOMYCIN 1 GRAM (PRE-DOCKED) 1,000 MG/250 ML BAG IVPB SCH (08:16)
[2021-08-05] MEDS ORDERED: PIPERACILLIN/TAZOB 4.5 GM 4.5 GM in DEXTROSE 5%-WATER 100 ML IVPB SCH (09:00)
[2021-08-05] MEDS ORDERED: VANCOMYCIN 1,000 MG in DEXTROSE 5%-WATER - 250 ML IVPB SCH (10:00)
[2021-08-05] MEDS: METOPROLOL TARTRATE 25 MG TABLET (FP) PO SCH ×2 (11:11→22:25)
[2021-08-05] MEDS: ASPIRIN COATED 81 MG TABLET.EC PO SCH (11:12)
[2021-08-05] MEDS: amLODIPine BESYLATE 5 MG TABLET (FP) PO SCH (11:13)
[2021-08-05] MEDS: PANTOPRAZOLE 40 MG TABLET PO SCH (11:13)
[2021-08-05] MEDS: TAMSULOSIN HCL 0.4 MG CAP PO SCH (11:13)
[2021-08-05] MEDS ORDERED: PIPERACILLIN/TAZOB 4.5 GM 4.5 GM in DEXTROSE 5%-WATER 100 ML IVPB ONE (12:00)
[2021-08-05 12:22] LABS: BASO % 0.2 % (0-2.0); EOS % 1.5 % (0-4.5); HEMOGLOBIN 9.6 GM/dL (11.7-16.9); MCHC 32.9 g/dl (32.0-35.9); MEAN CELL VOLUME 94.1 fl (80-96); MEAN PLT VOLUME 7.5 fl (7.5-11.1); MONO % 8.7 % (3.8-10.2); NEUT % 68.6 % (42.8-82.8); PLATELET COUNT 122 10^3/uL (134-434); RBC 3.09 M/mm3 (4.00-5.60); RDW 16.5 % (11.9-15.9); WHITE BLOOD COUNT 7.4 K/mm3 (4.0-10.0)
[2021-08-05 12:54] LABS: CALCIUM 7.9 mg/dL (8.5-10.1)
[2021-08-05 12:55] LABS: ALBUMIN 2.8 g/dl (3.4-5.0); BLOOD UREA NITROGEN 30.8 mg/dL (7-18)
[2021-08-05 12:58] LABS: CREATININE 1.6 mg/dL (0.55-1.3)
[2021-08-05 12:59] LABS: BILIRUBIN,TOTAL 0.4 mg/dL (0.2-1); TOT PROT 6.7 g/dl (6.4-8.2)
[2021-08-05 13:03] LABS: N-TERMINAL BNP 1762.4 pg/ml (5-450)
[2021-08-05] MEDS ORDERED: PIPERACILLIN/TAZOB 3.375 GM 3.375 GM in DEXTROSE 5%-WATER - 50 ML IVPB SCH (13:45)
[2021-08-05] MEDS ORDERED: DEXTROSE 5%-WATER - 50 ML IVPB ONE ×2 (13:58→22:10)
[2021-08-05] MEDS ORDERED: PIPERACILLIN/TAZOBACTAM 3.375 GM VIAL IVPB ONE (13:58)
[2021-08-05] MEDS ORDERED: SODIUM CHLORIDE 0.45% 1,000 ML IV SCH (14:30)
[2021-08-05] MEDS ORDERED: BENZOCAINE/MENTH/CETYLPYRD CL 1 EACH LOZENGE MM PRN (15:16)
[2021-08-05] MEDS ORDERED: guaiFENesin/D-METHORPHAN HB 10 ML UNIT-DOSE CUPS PO PRN (15:16)
[2021-08-05] MEDS: PIPERACILLIN/TAZOB 3.375 GM 3.375 GM in DEXTROSE 5%-WATER - 50 ML IVPB SCH (17:46)
[2021-08-05 19:12] LABS: EPI CELLS 3 /uL (0-25.1); HYALINE CASTS 0 /uL (0-3.1); PH,URINE 5.5 (5.0-8.0); URINE APPEARANCE CLEAR; URINE BACTERIA 2 /uL (0-1359); URINE BILIRUBIN NEGATIVE (NEGATIVE); URINE COLOR YELLOW; URINE GLUCOSE (UA) NEGATIVE (NEGATIVE); URINE KETONE NEGATIVE (NEGATIVE); URINE LEUK ESTERASE NEGATIVE (NEGATIVE); URINE NITRITE NEGATIVE (NEGATIVE); URINE PROTEIN 1+ (NEGATIVE); URINE RBC 17 /uL (0-23.9); URINE UROBILINOGEN 0.2 mg/dL (0.2-1.0); URINE WBC 2 /uL (0-25.8)
[2021-08-05] MEDS ORDERED: cefTRIAXone SODIUM 1 GM VIAL ONE (22:09)
[2021-08-05] MEDS: HEPARIN NA (PORCINE) 5,000 UNITS/ML 1ML VIAL SQ SCH (22:22)
[2021-08-05] MEDS: ATORVASTATIN CA 10 MG TABLET (FP) PO SCH (22:25)
[2021-08-05] MEDS: CEFTRIAXONE 1 GM in DEXTROSE 5%-WATER - 50 ML IVPB SCH (22:26)
[2021-08-05] MEDS: AZITHROMYCIN IVPB 500 MG/250 ML BAG IVPB SCH (22:26)
[2021-08-06 06:56] LABS: BASO % 0.3 % (0-2.0); EOS % 2.1 % (0-4.5); HEMATOCRIT 25.8 % (35.4-49); HEMOGLOBIN 8.9 GM/dL (11.7-16.9); LYMPH % 25.1 % (8-40); MCH 31.8 pg (25.7-33.7); MCHC 34.4 g/dl (32.0-35.9); MEAN CELL VOLUME 92.6 fl (80-96); MEAN PLT VOLUME 8.1 fl (7.5-11.1); MONO % 7.6 % (3.8-10.2); NEUT % 64.9 % (42.8-82.8); PLATELET COUNT 106 10^3/uL (134-434); RBC 2.78 M/mm3 (4.00-5.60); RDW 16.4 % (11.9-15.9); WHITE BLOOD COUNT 7.5 K/mm3 (4.0-10.0)
[2021-08-06] MEDS: HEPARIN NA (PORCINE) 5,000 UNITS/ML 1ML VIAL SQ SCH ×3 (07:01→21:40)
[2021-08-06] MEDS: LEVOTHYROXINE NA 50 MCG TABLET (FP) PO SCH (07:01)
[2021-08-06 07:17] LABS: ALBUMIN 2.4 g/dl (3.4-5.0); BLOOD UREA NITROGEN 21.7 mg/dL (7-18); CALCIUM 7.4 mg/dL (8.5-10.1)
[2021-08-06 07:20] LABS: CREATININE 1.4 mg/dL (0.55-1.3)
[2021-08-06 07:22] LABS: BILIRUBIN,TOTAL 0.4 mg/dL (0.2-1)
[2021-08-06] MEDS ORDERED: VANCOMYCIN/WATER FOR INJ (PEG) 1,000 MG/200 ML BAG IVPB SCH (08:00)
[2021-08-06] MEDS ORDERED: cefTRIAXone SODIUM 1 GM VIAL ONE (09:26)
[2021-08-06] MEDS ORDERED: DEXTROSE 5%-WATER - 50 ML IVPB ONE (09:27)
[2021-08-06] MEDS: PANTOPRAZOLE 40 MG TABLET PO SCH (10:46)
[2021-08-06] MEDS: amLODIPine BESYLATE 5 MG TABLET (FP) PO SCH (10:46)
[2021-08-06] MEDS: ASPIRIN COATED 81 MG TABLET.EC PO SCH (10:47)
[2021-08-06] MEDS: TAMSULOSIN HCL 0.4 MG CAP PO SCH (10:47)
[2021-08-06] MEDS: METOPROLOL TARTRATE 25 MG TABLET (FP) PO SCH ×2 (10:48→21:40)
[2021-08-06] MEDS: CEFTRIAXONE 1 GM in DEXTROSE 5%-WATER - 50 ML IVPB SCH (10:50)
[2021-08-06] MEDS: AZITHROMYCIN IVPB 500 MG/250 ML BAG IVPB SCH (12:39)
[2021-08-06] MEDS: ATORVASTATIN CA 10 MG TABLET (FP) PO SCH (21:40)
[2021-08-06] MEDS: RANOLAZINE E.R. 500 MG TABLET (FP) PO SCH (21:45)
[2021-08-07] MEDS: HEPARIN NA (PORCINE) 5,000 UNITS/ML 1ML VIAL SQ SCH ×3 (06:08→21:43)
[2021-08-07] MEDS: LEVOTHYROXINE NA 50 MCG TABLET (FP) PO SCH (06:08)
[2021-08-07] MEDS: TAMSULOSIN HCL 0.4 MG CAP PO SCH (09:00)
[2021-08-07] MEDS ORDERED: cefTRIAXone SODIUM 1 GM VIAL ONE (09:39)
[2021-08-07] MEDS ORDERED: DEXTROSE 5%-WATER - 50 ML IVPB ONE (09:41)
[2021-08-07] MEDS: amLODIPine BESYLATE 5 MG TABLET (FP) PO SCH (10:30)
[2021-08-07] MEDS: RANOLAZINE E.R. 500 MG TABLET (FP) PO SCH ×2 (10:30→21:44)
[2021-08-07] MEDS: ASPIRIN COATED 81 MG TABLET.EC PO SCH (10:30)
[2021-08-07] MEDS: PANTOPRAZOLE 40 MG TABLET PO SCH (10:30)
[2021-08-07] MEDS: METOPROLOL TARTRATE 25 MG TABLET (FP) PO SCH ×2 (10:30→21:44)
[2021-08-07] MEDS: CEFTRIAXONE 1 GM in DEXTROSE 5%-WATER - 50 ML IVPB SCH (10:39)
[2021-08-07] MEDS: AZITHROMYCIN IVPB 500 MG/250 ML BAG IVPB SCH (12:53)
[2021-08-07] MEDS: ATORVASTATIN CA 10 MG TABLET (FP) PO SCH (21:44)
[2021-08-08] MEDS: HEPARIN NA (PORCINE) 5,000 UNITS/ML 1ML VIAL SQ SCH (05:58)
[2021-08-08] MEDS: LEVOTHYROXINE NA 50 MCG TABLET (FP) PO SCH (06:00)
[2021-08-08 08:25] LABS: ALBUMIN 2.7 g/dl (3.4-5.0); CALCIUM 8.1 mg/dL (8.5-10.1)
[2021-08-08 08:26] LABS: BLOOD UREA NITROGEN 20.7 mg/dL (7-18)
[2021-08-08 08:28] LABS: CREATININE 1.5 mg/dL (0.55-1.3)
[2021-08-08 08:30] LABS: BILIRUBIN,TOTAL 0.3 mg/dL (0.2-1)
[2021-08-08] MEDS ORDERED: cefTRIAXone SODIUM 1 GM VIAL ONE (09:59)
[2021-08-08] MEDS ORDERED: DEXTROSE 5%-WATER - 50 ML IVPB ONE (10:00)
[2021-08-08] MEDS: ASPIRIN COATED 81 MG TABLET.EC PO SCH (10:03)
[2021-08-08] MEDS: RANOLAZINE E.R. 500 MG TABLET (FP) PO SCH (10:03)
[2021-08-08] MEDS: PANTOPRAZOLE 40 MG TABLET PO SCH (10:03)
[2021-08-08] MEDS: TAMSULOSIN HCL 0.4 MG CAP PO SCH (10:03)
[2021-08-08] MEDS: amLODIPine BESYLATE 5 MG TABLET (FP) PO SCH (10:04)
[2021-08-08] MEDS: METOPROLOL TARTRATE 25 MG TABLET (FP) PO SCH (10:04)
[2021-08-08] MEDS: CEFTRIAXONE 1 GM in DEXTROSE 5%-WATER - 50 ML IVPB SCH (10:04)
[2021-08-08 11:42] VITALS: PULSE 70
[2021-08-08 12:07] LABS: ANTIGLOMERULAR BASEMENT MEN.AB 2 units (0-20)
[2021-08-08] MEDS ORDERED: FUROSEMIDE 40 MG/4 ML INJECTABLE VIAL IVPUSH ONE (12:57)
[2021-08-08 16:39] VITALS: BP 101/50; TEMP 97.9
[2021-08-10 14:07] LABS: ATYPICAL pANCA <1:20 titer (Neg:<1:20); C-ANCA <1:20 titer (Neg:<1:20)
== END 2021-08-08 17:08 | disposition home or self-care (01) | DRG 202 ==
LOC: FER 19:45 → J4W 08-05 03:30
PROVIDERS: ADMIT Hospitalist; ATTEND Internal Medicine
DX: J20.9 Acute bronchitis, unspecified (principal); I13.0 Hypertensive heart and chronic kidney disease with heart failure and stage 1 through stage 4 chronic kidney disease, or unspecified chronic kidney disease; I50.32 Chronic diastolic (congestive) heart failure; I24.8 Other forms of acute ischemic heart disease; I25.10 Atherosclerotic heart disease of native coronary artery without angina pectoris; E78.5 Hyperlipidemia, unspecified; D64.9 Anemia, unspecified; Z95.2 Presence of prosthetic heart valve; K21.9 Gastro-esophageal reflux disease without esophagitis; N40.0 Benign prostatic hyperplasia without lower urinary tract symptoms; Z95.5 Presence of coronary angioplasty implant and graft; Z86.16 Personal history of COVID-19; I25.2 Old myocardial infarction; N18.30 Chronic kidney disease, stage 3 unspecified; E03.9 Hypothyroidism, unspecified
CPT/HCPCS: 36415; 71045-TC-FY; 76775-TC; 80053; 81003; 81015; 82550; 83516; 83520; 83605; 83880; 84155; 84165; 84484; 85025; 86038; 86225; 86256; 87040; 87070; 87077; 87086; 87205; 87804; 87807; 87899; 93005; 94761; 97116-GP; 97162-GP; 99285-25; C9803-CS; J1644; U0003; U0005

== ENCOUNTER 2022-11-08 23:35 | Emergency (ER) | payer OTHER ==
[2022-11-09 01:00] VITALS: BP 143/63; PULSE 73; RESP 18; TEMP 98.9; BMI 21.9
== END 2022-11-09 02:42 | disposition home or self-care (01) ==
LOC: FER 23:35
DX: M79.89 Other specified soft tissue disorders (principal); R60.9 Edema, unspecified; G89.18 Other acute postprocedural pain; M25.552 Pain in left hip
CPT/HCPCS: 93970-TC; 99284-25